=== PATIENT | female | born 1975 | race Caucasian/White ===

== ENCOUNTER 2021-02-17 06:36 | Day surgery (SDC) | payer SELFPAY ==
[2021-02-13 14:22] VITALS: BMI 25.3
[2021-02-17] MEDS ORDERED: EPINEPHrine 1:1,000 1 MG/1 ML - 30ML VIAL (INJECTION) ONE (07:15)
[2021-02-17] MEDS ORDERED: LIDOCAINE HCL 1%, 10 MG/ML (20ML VIAL) ONE (07:15)
[2021-02-17] MEDS ORDERED: ROCURONIUM BROMIDE 50 MG/5 ML SYRINGE ONE (07:45)
[2021-02-17] MEDS ORDERED: fentaNYL CITRATE 250 MCG/5 ML VIAL ONE (07:45)
[2021-02-17] MEDS ORDERED: LIDOCAINE HCL/PF 2% SDV 5ML VIAL ONE (07:45)
[2021-02-17] MEDS ORDERED: PROPOFOL 20 ML ONE ×2 (07:45→10:15)
[2021-02-17] MEDS ORDERED: MIDAZOLAM HCL 2 MG/2 ML SINGLE DOSE VIAL ONE ×2 (07:46)
[2021-02-17] MEDS ORDERED: BACITRACIN 15 GM TUBE TOPICAL OINTMENT ONE (07:48)
[2021-02-17] MEDS ORDERED: DEXAMETHASONE SOD PHOSPHATE 4 MG/1 ML VIAL ONE (08:59)
[2021-02-17] MEDS ORDERED: ceFAZolin SODIUM 1 GM VIAL ONE (08:59)
[2021-02-17] MEDS ORDERED: ONDANSETRON 4 MG/2 ML VIAL ONE (08:59)
[2021-02-17] MEDS ORDERED: DESFLURANE GAS 240 ML BOTTLE IH ONE (09:49)
[2021-02-17] MEDS ORDERED: NEOSTIGMINE METHYLSULFATE 0.5 MG/1 ML - 10 ML MDV ONE (09:51)
[2021-02-17] MEDS ORDERED: GLYCOPYRROLATE 0.2 MG/1 ML VIAL ONE (09:51)
[2021-02-17] MEDS ORDERED: BACITRACIN 15 GM TUBE TOPICAL OINTMENT TP ONE ×2 (10:20→10:45)
[2021-02-17] MEDS ORDERED: ONDANSETRON 4 MG/2 ML VIAL IVPUSH PRN (10:33)
[2021-02-17] MEDS ORDERED: oxyCODONE HCL 5 MG TABLET PO PRN ×2 (10:33)
[2021-02-17] MEDS ORDERED: LACTATED RINGERS SOLUTION 1,000 ML IV SCH (10:45)
[2021-02-17] MEDS ORDERED: ACETAMINOPHEN 325 MG TABLET (FP) ONE (12:48)
[2021-02-17] MEDS ORDERED: ACETAMINOPHEN 325 MG TABLET (FP) PO ONE (13:01)
[2021-02-17 13:17] VITALS: TEMP 97.9
[2021-02-17 14:19] VITALS: BP 112/68; PULSE 92
== END 2021-02-17 14:15 | disposition home or self-care (01) ==
LOC: FASU 06:36
PROVIDERS: ATTEND Surgery
PROC: 0J083ZZ Alteration of Abdomen Subcutaneous Tissue and Fascia, Percutaneous Approach (ICD-10-PCS; principal; 2021-02-17 09:10)
DX: Z41.1 Encounter for cosmetic surgery (principal)
CPT/HCPCS: 81025; 94760